=== PATIENT | female | born 1940 | race Hispanic/Latino ===

== ENCOUNTER 2021-11-21 09:31 | Emergency (ER) | payer MEDICARE ==
--- NOTE | 2021-11-21 13:20 | Emergency Department Report ---
<AUGUSTO LAZO - Last Filed: 11/21/21 14:59> ED Altered Mental Status HPI - General Chief Complaint: Altered Mental Status Stated Complaint: UNRESPONSIVE Time Seen by Provider: 11/21/21 11:40 Source: EMS Mode of arrival: Stretcher Limitations: Altered Mental Status - History of Present Illness Initial Comments: 81-year-old female brought in from skilled nursing with altered mental status and unresponsiveness that started this morning progressively getting worse. History is very limited. Patient has high sister named Rachell and niece named Horace in the examination room who told me that patient is DNR and only wanted to keep her comfortable. I was informed that patient did have recent right femur fracture in August 2021 and s/p surgery that she has never be the same. Horace says she has no quality of life left and she will not wanted to be tortured or placed on life support. Pt sister Rachell who happened to be the one with [employer] agreed as well. They says the only wanted their loved one to minimal to no workup at this point. No other modifying or associated factor reported. - Related Data Allergies Allergy/AdvReac Type Severity Reaction Status Date / Time codeine AdvReac Unknown Verified 11/21/21 09:39 dulaglutide [From Trulicity] AdvReac Unknown Verified 11/21/21 09:39 metformin AdvReac Unknown Verified 11/21/21 09:39 warfarin AdvReac Unknown Verified 11/21/21 09:39 ED Review of Systems Comment: Unobtainable due to pts medical conditions (patient is unresponsive) ED Physical Exam - General Limitations: Altered Mental Status General appearance: lethargic - Head Head exam: Present: atraumatic - Eye Eye exam: Present: normal appearance Pupils: Present: normal accommodation - ENT ENT exam: Present: normal orophraynx - Neck Neck exam: Present: normal inspection - Respiratory Respiratory exam: Present: normal lung sounds bilaterally - Cardiovascular Cardiovascular Exam: Present: regular rate, normal rhythm, normal heart sounds - GI/Abdominal GI/Abdominal exam: Present: soft. Absent: tenderness - Extremities Exam Extremities exam: Present: other (noted surgical scar along the left thigh with no sign of infection or drainage) - Neurological Exam Neurological exam: Present: altered - Skin Skin exam: Present: warm ED Course - Reevaluation(s) Reevaluation #1: 11/21/21 14:43 Case management came to the ED and evaluate patient and spoke with patient's family and determine that her skilled nursing is actually have hospice attached to it and she is going to go there. They are going to be working to make this happened. Reevaluation #2: 11/21/21 14:55 Social workers and machine adjuster leader case trim confirmed placement for patient -- so she will discharge back to hospice -- Reevaluation #3: 11/21/21 15:02 Pt now signed out to Dr Bautista while waiting for placement to hospice in the morning. - EKG Data -: EKG Interpreted by Me EKG shows normal: sinus rhythm Rate: normal 11/21/21 13:23 Noted with normal sinus rhythm at a rate of 93 bpm, with no acute ST elevation or depression in this abnormal ECG. ED Disposition Clinical Impression: FTT (failure to thrive) in adult, Disposition: 20 Is pt being admited?: No Does the pt Need Aspirin: No Condition: Poor Time of Disposition: 14:45 <MICHELLE BAUTISTA - Last Filed: 11/21/21 20:33> ED Review of Systems ROS: Stated complaint: UNRESPONSIVE Other details as noted in HPI ED Course Vital Signs 11/21/21 11/21/21 11/21/21 09:36 09:54 10:00 Pulse Rate 86 93 H 84 Respiratory 31 H 29 H Rate Blood Pressure Blood Pressure 86/51 [Left] O2 Sat by Pulse 92 Oximetry 11/21/21 11/21/21 11/21/21 10:16 10:30 10:46 Pulse Rate 84 82 82 Respiratory 27 H 27 H 29 H Rate Blood Pressure 57/24 Blood Pressure [Left] O2 Sat by Pulse Oximetry 11/21/21 11/21/21 11/21/21 11:00 11:16 11:30 Pulse Rate 81 78 81 Respiratory 29 H 28 H 27 H Rate Blood Pressure 57/34 57/34 57/34 Blood Pressure [Left] O2 Sat by Pulse Oximetry 11/21/21 11/21/21 11/21/21 11:46 12:00 12:16 Pulse Rate 79 81 Respiratory 15 27 H 22 Rate Blood Pressure 85/67 85/67 134/101 Blood Pressure [Left] O2 Sat by Pulse Oximetry 11/21/21 11/21/21 11/21/21 12:30 12:46 13:00 Pulse Rate 83 82 82 Respiratory 27 H 27 H 26 H Rate Blood Pressure 53/26 56/34 Blood Pressure [Left] O2 Sat by Pulse Oximetry 11/21/21 11/21/21 11/21/21 13:16 13:30 13:46 Pulse Rate 83 82 82 Respiratory 29 H 28 H 28 H Rate Blood Pressure 52/21 42/27 58/21 Blood Pressure [Left] O2 Sat by Pulse Oximetry 11/21/21 11/21/21 11/21/21 14:00 14:16 14:30 Pulse Rate 80 79 79 Respiratory 22 27 H 26 H Rate Blood Pressure 50/23 49/28 48/33 Blood Pressure [Left] O2 Sat by Pulse 95 Oximetry 11/21/21 11/21/21 11/21/21 14:46 15:00 15:16 Pulse Rate 79 79 79 Respiratory 20 26 H 26 H Rate Blood Pressure 105/78 48/33 211/166 Blood Pressure [Left] O2 Sat by Pulse Oximetry 11/21/21 11/21/21 11/21/21 15:30 15:45 16:01 Pulse Rate 78 80 81 Respiratory 25 H 26 H 27 H Rate Blood Pressure 211/166 211/166 47/29 Blood Pressure [Left] O2 Sat by Pulse Oximetry 11/21/21 11/21/21 11/21/21 16:15 16:31 16:45 Pulse Rate 82 83 83 Respiratory 26 H 23 23 Rate Blood Pressure 47/29 47/29 47/29 Blood Pressure [Left] O2 Sat by Pulse Oximetry 11/21/21 11/21/21 11/21/21 17:01 17:15 17:31 Pulse Rate 82 82 81 Respiratory 21 21 22 Rate Blood Pressure 49/23 49/23 49/23 Blood Pressure [Left] O2 Sat by Pulse Oximetry 11/21/21 11/21/21 11/21/21 17:45 18:01 18:15 Pulse Rate 81 80 79 Respiratory 21 20 19 Rate Blood Pressure 49/23 49/23 49/23 Blood Pressure [Left] O2 Sat by Pulse Oximetry 11/21/21 11/21/21 11/21/21 18:31 18:45 19:01 Pulse Rate 78 77 76 Respiratory 18 17 16 Rate Blood Pressure 49/23 49/23 49/23 Blood Pressure [Left] O2 Sat by Pulse Oximetry 11/21/21 11/21/21 11/21/21 19:15 19:31 19:45 Pulse Rate 76 72 56 L Respiratory 15 13 13 Rate Blood Pressure 49/23 49/23 49/23 Blood Pressure [Left] O2 Sat by Pulse 91 Oximetry 11/21/21 11/21/21 20:01 20:15 Pulse Rate 51 L 51 L Respiratory 7 L 0 L Rate Blood Pressure 49/23 49/23 Blood Pressure [Left] O2 Sat by Pulse 87 Oximetry - Medical Decision Making I was called to bedside by nurse who reported the patient was not breathing. On my arrival to the room patient appears pale with no palpable pulse. She is a DNR. Patient at 20:28. Critical care attestation.: If time is entered above; I have spent that time in minutes in the direct care of this critically ill patient, excluding procedure time. ED Disposition Time of Disposition: 20:33
[2021-11-21] MEDS ORDERED: SODIUM CHLORIDE 0.9% 1000 ML 1,000 ML ONE ×2 (13:22→19:38)
[2021-11-21 18:15] VITALS: BP 49/23
--- NOTE | 2021-11-22 09:38 | Electrocardiograph Report ---
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
== END 2021-11-21 21:50 ==
LOC: ED 09:31
DX: R62.7 Adult failure to thrive (principal); Z88.8 Allergy status to other drugs, medicaments and biological substances; Z88.6 Allergy status to analgesic agent
CPT/HCPCS: 93005; 99285; J7030